=== PATIENT | male | born 1975 | race African-American/Black ===

== ENCOUNTER 2016-08-22 14:05 | Inpatient (IN) | payer OTHER ==
[~2016-08-22] VITALS: Ht 157.5 cm; Wt 69.1 kg
[2016-08-22 17:06] LABS: ADD MIUA? YES; BILIRUBIN NEGATIVE; BLOOD MODERATE; COLOR YELLOW ((YELLOW)); GLUCOSE (STRIP) NEGATIVE; KETONES 20; LEUKOCYTES NEGATIVE; NITRITE NEGATIVE; PROTEIN (STRIP) NEGATIVE; UROBILINOGEN 0.2 MG/DL (0.2-1.0)
[2016-08-22 17:10] LABS: BACTERIA NONE SEEN /HPF; EPITHELIAL CELLS NONE SEEN /HPF; MUCUS NONE SEEN /LPF; RED BLOOD CELLS 0-5 /HPF (0-5); UCUL ADDED? NO; WHITE BLOOD CELLS 0-5 /HPF (0-5)
[2016-08-22 17:26] LABS: HEMATOCRIT 43.1 % (38.0-50.0); MCH 27.7 PG (29.0-34.0); MCHC 33.2 G/DL (30.0-36.0); MCV 83.5 FL (86-99); MEAN PLAT.VOLUME 9.9 uM^3 (9.0-12.4); PLATELET COUNT 349 K/uL (156-360); RBC DIS.WIDTH-CV 13.2 % (11.8-14.6); RBC DIS.WIDTH-SD 40.2 % (39-53); RED BLOOD COUNT 5.16 M/uL (4.00-5.50); WHITE BLOOD COUNT 6.7 K/uL (4.1-10.2)
[2016-08-22 17:48] LABS: CHLORIDE 104 mEq/L (99-109); POTASSIUM 3.4 mEq/L (3.7-5.4); SODIUM 139 mEq/L (136-147)
[2016-08-22 17:50] LABS: GLUCOSE 104 mg/dL (70-99)
[2016-08-22 17:51] LABS: ANION GAP 10 MEQ/L (2-14)
[2016-08-22 17:52] LABS: TOTAL BILIRUBIN 0.5 mg/dL (0.0-1.0)
[2016-08-22 17:53] LABS: ALKALINE PHOSPHATASE 85 IU/L (3-129)
[2016-08-22 17:54] LABS: GFR ESTIMATE (CALCULATED) > 59 mL/min/
[2016-08-22 17:55] LABS: UREA NITROGEN (BUN) 7 mg/dL (9-23)
[2016-08-22 17:57] LABS: LIPASE 10 U/L (1.0-51.0)
[2016-08-22 18:04] LABS: CK-MB 13.7 ng/mL (0.0-4.9)
[2016-08-22 18:31] LABS: TOTAL CK 15915 IU/L (1-294)
[2016-08-22 18:32] LABS: CREATINE KINASE 15915 IU/L (1-294)
[2016-08-22 19:51] LABS: AMPHETAMINE NEGATIVE (500 ng/mL); BARBITURATES NEGATIVE (200 ng/mL); BENZODIAZEPINES NEGATIVE (150 ng/mL); COCAINE NEGATIVE (150 ng/mL); METHADONE NEGATIVE (200 ng/mL); METHAMPHETAMINE NEGATIVE (500 ng/mL); OPIATES (MORPHINE) NEGATIVE (100 ng/mL); OXYCODONE NEGATIVE (100 ng/mL); PHENCYCLIDINE NEGATIVE (25 ng/mL); PROPOXYPHENE NEGATIVE (300 ng/mL); THC CANNABINOIDS NEGATIVE (50 ng/mL); TRICYCLIC ANTIDEPRESSANTS NEGATIVE (300 ng/mL)
[2016-08-22 19:52] LABS: INTERNAL CONTROLS VALID? YES
[2016-08-22] MEDS ORDERED: LOSARTAN-HCTZ1 EAC1 PO (20:48)
[2016-08-22] MEDS ORDERED: VALACYCLOVIR1000 MG PO (20:48)
[2016-08-22] MEDS ORDERED: VISINE A.C300 DROP/1 BOTH EYES (20:49)
[2016-08-22 21:28] LABS: Estimated Average Glucose 128 mg/dL (70-123); HEMOGLOBIN A1c (GLYCOHEMOGLOB) 6.1 % HGB (Below 5.7)
[2016-08-22 22:10] VITALS: BP 133/87
[2016-08-23 04:15] VITALS: BP 160/86
[2016-08-23 06:25] LABS: HEMATOCRIT 38.9 % (38.0-50.0); MCH 28.1 PG (29.0-34.0); MCHC 32.9 G/DL (30.0-36.0); MCV 85.5 FL (86-99); MEAN PLAT.VOLUME 10.2 uM^3 (9.0-12.4); PLATELET COUNT 316 K/uL (156-360); RBC DIS.WIDTH-CV 13.6 % (11.8-14.6); RBC DIS.WIDTH-SD 42.5 % (39-53); RED BLOOD COUNT 4.55 M/uL (4.00-5.50)
[2016-08-23 06:38] LABS: WHITE BLOOD COUNT 3.9 K/uL (4.1-10.2)
[2016-08-23 07:11] LABS: ALKALINE PHOSPHATASE 67 IU/L (3-129); ANION GAP 5 MEQ/L (2-14); CHLORIDE 107 MEQ/L (99-109); DIRECT BILIRUBIN 0.1 mg/dL (0.0-0.3); GFR ESTIMATE (CALCULATED) > 59 mL/min/; GLUCOSE 92 mg/dL (70-99); SAMPLE HEMOLYSIS CHECK 0; SAMPLE ICTERIC CHECK 0; SAMPLE LIPEMIA CHECK 0; SODIUM 140 MEQ/L (136-147); TOTAL BILIRUBIN 0.5 MG/DL (0.0-1.0); UREA NITROGEN (BUN) 6 mg/dL (9-23)
[2016-08-23 07:12] LABS: CREATINE KINASE 12727 IU/L (1-294); POTASSIUM 4.2 MEQ/L (3.7-5.4)
[2016-08-23 08:59] VITALS: BP 185/97
[2016-08-23 13:52] VITALS: BP 155/86
[2016-08-23 16:22] VITALS: BP 139/66
[2016-08-23 20:00] VITALS: BP 180/82
[2016-08-23 23:45] VITALS: BP 170/92
[2016-08-24 04:05] VITALS: BP 144/88
[2016-08-24 07:13] LABS: ANION GAP 5 MEQ/L (2-14); CHLORIDE 107 MEQ/L (99-109); GFR ESTIMATE (CALCULATED) > 59 mL/min/; GLUCOSE 98 mg/dL (70-99); POTASSIUM 3.9 MEQ/L (3.7-5.4); SAMPLE HEMOLYSIS CHECK 0; SAMPLE ICTERIC CHECK 0; SAMPLE LIPEMIA CHECK 0; SODIUM 139 MEQ/L (136-147); UREA NITROGEN (BUN) 6 mg/dL (9-23)
[2016-08-24 07:16] LABS: CREATINE KINASE 10760 IU/L (1-294)
[2016-08-24 07:56] VITALS: BP 171/89
[2016-08-24 11:28] VITALS: BP 163/77
[2016-08-24 15:58] VITALS: BP 165/78
[2016-08-24 20:08] VITALS: BP 148/79
[2016-08-24 23:53] VITALS: BP 134/65
[2016-08-25 03:56] VITALS: BP 134/69
[2016-08-25 07:31] VITALS: BP 171/88
[2016-08-25 08:06] LABS: CHLORIDE 110 mEq/L (99-109); POTASSIUM 4.1 mEq/L (3.7-5.4); SODIUM 140 mEq/L (136-147)
[2016-08-25 08:09] LABS: GLUCOSE 84 mg/dL (70-99)
[2016-08-25 08:10] LABS: ANION GAP 7 MEQ/L (2-14)
[2016-08-25 08:11] LABS: TOTAL BILIRUBIN 0.4 mg/dL (0.0-1.0)
[2016-08-25 08:12] LABS: ALKALINE PHOSPHATASE 81 IU/L (3-129); GFR ESTIMATE (CALCULATED) > 59 mL/min/
[2016-08-25 08:13] LABS: UREA NITROGEN (BUN) 6 mg/dL (9-23)
[2016-08-25 11:12] VITALS: BP 138/86
[2016-08-25 15:49] VITALS: BP 144/80
[2016-08-25 19:55] VITALS: BP 169/90
[2016-08-25 23:53] VITALS: BP 128/74
[2016-08-26 04:07] VITALS: BP 172/93
[2016-08-26 07:57] VITALS: BP 157/86
[2016-08-26] MEDS ORDERED: AMLODIPINE BESYL5 MG PO (11:06)
[2016-08-26] MEDS ORDERED: CARVEDILOL6.25 MG PO (11:06)
== END 2016-08-26 13:25 | disposition home or self-care (01) | DRG 566 ==
LOC: EME 14:05 → RME 14:05 → EDOF 20:26 → 5SOUTH 20:26
PROVIDERS: Hospitalist; Internal Medicine; Nurse Practitioner Family
DX: T79.6XXA Traumatic ischemia of muscle, initial encounter (principal); E87.6 Hypokalemia; I10 Essential (primary) hypertension; B00.9 Herpesviral infection, unspecified; E66.9 Obesity, unspecified; Z68.27 Body mass index [BMI] 27.0-27.9, adult; Z91.14 Patient's other noncompliance with medication regimen
CPT/HCPCS: 74177; 76705; 80048; 80053; 80076; 81003; 82550; 82553; 83036; 83690; 83874 90; 84439; 84443; 85027; 93005; 99281; 99285; J1644; J7030